=== PATIENT | male | born 1965 | race African-American/Black ===

== ENCOUNTER 2018-10-26 14:41 | Inpatient (IN) | payer SELFPAY ==
[~2018-10-26] VITALS: Ht 167.6 cm; Wt 46.7 kg
[2018-10-26] MEDS ORDERED: SODIUM CHLORIDE 0.9% 1,000 ML IV ONE (15:48)
[2018-10-26] MEDS ORDERED: IPRATROPIUM BROM 0.5 MG/2.5ML INH SOL NEB ONE (16:00)
[2018-10-26] MEDS ORDERED: methylPREDNISolone SOD SUCC 125 MG/2 ML VL IV ONE (16:00)
[2018-10-26] MEDS ORDERED: ALBUTEROL SULF 2.5 MG/0.5ML(0.5%) NEB SOLN NEB ONE (16:00)
[2018-10-26 16:10] VITALS: BP 144/82
[2018-10-26] MEDS ORDERED: cefTRIAXone 1GM/50ML D5W 50 ML IV ONE (16:30)
[2018-10-26 16:41] LABS: Basophils # (auto) 0 uL; Basophils % (auto) 0.2 % (0.0-2.0); Eosinophils # (auto) 0 uL; Hematocrit 40.4 % (41.0-53.0); Hemoglobin 13.3 g/dL (13.5-17.5); Lymphocytes # (auto) 0.4 uL; Lymphocytes % (auto) 6.3 % (10.0-50.0); Mean Corpuscular Hemoglobin 27.2 pg (28.0-32.0); Mean Corpuscular Volume 82.5 fL (80.0-100.0); Monocytes # (auto) 0.3 uL; Monocytes % (auto) 5.2 % (0.0-12.0); Neutrophils # (auto) 5.5 uL; Neutrophils % (auto) 88.3 % (37.0-80.0); Platelet Count (auto) 185 10^3/uL (140-450); Red Blood Cells 4.89 10^6/uL (4.5-5.90); Red Cell Distribution Width 14.8 % (11.8-14.3); White Blood Cell 6.2 10^3/uL (4.4-10.8)
[2018-10-26 16:55] LABS: Albumin 3.1 g/dL (3.4-5.0); Calcium 7.9 mg/dL (8.5-10.1); Potassium 3.7 mmol/L (3.5-5.1)
[2018-10-26 16:59] LABS: INR 1.09 (0.9-1.15); Partial Thromboplastin Time 33.1 sec (23.78-33.04); Prothrombin Time 11.6 sec (9.27-12.13)
[2018-10-26 17:00] LABS: Bilirubin, Total 0.3 mg/dL (0.2-1.0); Total Protein 7.8 g/dL (6.4-8.2)
[2018-10-26] MEDS: ALBUTEROL SULF 2.5 MG/0.5ML(0.5%) NEB SOLN NEB SCH ×2 (18:00→23:24)
[2018-10-26] MEDS: IPRATROPIUM BROM 0.5 MG/2.5ML INH SOL NEB SCH ×2 (18:00→23:24)
[2018-10-26] MEDS ORDERED: ACETAMINOPHEN 500 MG TAB PO PRN (18:45)
[2018-10-26] MEDS ORDERED: MORPHINE SULFATE 4 MG/ML SYR/VIAL IV PRN (18:45)
[2018-10-26] MEDS ORDERED: HYDROcodone-ACET 5/325MG TAB PO PRN (18:45)
[2018-10-26] MEDS ORDERED: ONDANSETRON HCL 4 MG/2 ML VIAL IV PRN (18:45)
[2018-10-26] MEDS ORDERED: NITROGLYCERIN 0.4 MG SL TAB SL PRN (18:45)
[2018-10-26] MEDS ORDERED: MORPHINE SULF INJ 2 MG/ML SYRINGE 1ML IV PRN (18:45)
[2018-10-26] MEDS: methylPREDNISolone SOD SUCC 125 MG/2 ML VL IV SCH ×2 (21:25→22:00)
[2018-10-27] MEDS: IPRATROPIUM BROM 0.5 MG/2.5ML INH SOL NEB SCH ×4 (06:30→22:23)
[2018-10-27] MEDS: ALBUTEROL SULF 2.5 MG/0.5ML(0.5%) NEB SOLN NEB SCH ×4 (06:30→22:23)
[2018-10-27 07:36] LABS: Potassium 4.6 mmol/L (3.5-5.1)
[2018-10-27 07:38] LABS: Basophils # (auto) 0 uL; Basophils % (auto) 0.2 % (0.0-2.0); Eosinophils # (auto) 0 uL; Hematocrit 39.5 % (41.0-53.0); Hemoglobin 13.1 g/dL (13.5-17.5); Lymphocytes # (auto) 0.5 uL; Lymphocytes % (auto) 10.3 % (10.0-50.0); Mean Corpuscular Hemoglobin 27.2 pg (28.0-32.0); Mean Corpuscular Hgb Conc. 33.1 g/dL (32.0-36.0); Mean Corpuscular Volume 82.3 fL (80.0-100.0); Monocytes # (auto) 0.1 uL; Monocytes % (auto) 2.4 % (0.0-12.0); Neutrophils % (auto) 87.1 % (37.0-80.0); Nucleated Red Blood Cells % 0.1 %; Platelet Count (auto) 163 10^3/uL (140-450); Red Blood Cells 4.81 10^6/uL (4.5-5.90); Red Cell Distribution Width 14.9 % (11.8-14.3); White Blood Cell 4.6 10^3/uL (4.4-10.8)
[2018-10-27 07:54] LABS: BUN/Creatinine Ratio 19.7; Calcium 8.2 mg/dL (8.5-10.1)
[2018-10-27] MEDS ORDERED: methylPREDNISolone SOD SUCC 125 MG/2 ML VL IV ONE (08:30)
[2018-10-27] MEDS: methylPREDNISolone SOD SUCC 125 MG/2 ML VL IV SCH ×2 (09:27→21:35)
[2018-10-27 09:30] VITALS: BP 150/72
[2018-10-27] MEDS ORDERED: PANTOPRAZOLE 40 MG/10 ML VIAL IV SCH (10:00)
[2018-10-27] MEDS ORDERED: AZITHROMYCIN 500MG/ 250ML 250 ML IV SCH (10:00)
[2018-10-27 13:00] VITALS: BP 151/96
[2018-10-27] MEDS ORDERED: hydrALAZINE HCL 20 MG/ML VL IV PRN (16:15)
[2018-10-27 17:00] VITALS: BP 140/82
[2018-10-27 22:00] VITALS: BP 155/89
[2018-10-28 05:00] VITALS: BP 150/73
[2018-10-28] MEDS: IPRATROPIUM BROM 0.5 MG/2.5ML INH SOL NEB SCH (07:21)
[2018-10-28] MEDS: ALBUTEROL SULF 2.5 MG/0.5ML(0.5%) NEB SOLN NEB SCH (07:21)
--- NOTE | 2018-10-28 08:11 | NUR ---
Closing note Patient resting in bed, no signs of distress noted. Care endorsed to day shift nurse.
[2018-10-28 09:00] VITALS: BP 169/97
[2018-10-28] MEDS: methylPREDNISolone SOD SUCC 125 MG/2 ML VL IV SCH (09:28)
[2018-10-28] MEDS ORDERED: PANTOPRAZOLE 40 MG TAB PO SCH (10:00)
--- NOTE | 2018-10-28 11:08 | NUR ---
PT RETURNED TO ROOM ESCORTED BY SECURITY. PT ADVISED TO STAY IN ROOM DR. CHACON WAS LOOKING FOR HIM. PT AGREED, WILL CONTINUE TO MONITOR.
[2018-10-28 13:00] VITALS: BP 144/95
[2018-10-28] MEDS ORDERED: amLODIPine BESYLATE 5 MG TAB PO ONE (13:00)
--- NOTE | 2018-10-28 13:19 | NUR ---
PT IS TO BE DISCHARGED PER DR. CHACON, INFLUENZA OR URINE CULTURE NO LONGER NEEDED PER MD.
--- NOTE | 2018-10-28 15:30 | NUR ---
Discharge instructions given as ordered. Encourage to follow up with PMD as instructed. All questions and concerns addressed. Patient verbalized understanding. Medication reconciliation form completed and copy given to patient. IV removed with catheter intact, pressure dressing applied. Patient requested to keep hospital bracelet and refused wheel chair. Pt requests to walk out of hospital on own with all personal belongings. No distress noted at time of departure.
== END 2018-10-28 16:00 | disposition home or self-care (01) | DRG 189 ==
LOC: ER 15:01 → OVERFLOW 18:43 → CENTRAL 10-27 08:21
PROVIDERS: ADMIT Nurse Practitioner Acute Care; ATTEND Internal Medicine
PROC: 5A09357 Assistance with Respiratory Ventilation, Less than 24 Consecutive Hours, Continuous Positive Airway Pressure (ICD-10-PCS; principal; 2018-10-26)
DX: J96.00 Acute respiratory failure, unspecified whether with hypoxia or hypercapnia (principal); E44.0 Moderate protein-calorie malnutrition; Z68.1 Body mass index [BMI] 19.9 or less, adult; J44.1 Chronic obstructive pulmonary disease with (acute) exacerbation; F17.210 Nicotine dependence, cigarettes, uncomplicated; E83.51 Hypocalcemia; I10 Essential (primary) hypertension; J10.1 Influenza due to other identified influenza virus with other respiratory manifestations
CPT/HCPCS: 36415; 36600; 71045; 80048; 80053; 80061; 82805; 83880; 84443; 84484; 85025; 85610; 85730; 87040; 93306; 94640; 94660; 96361; 96365; 96375; C9113; G0378; J0696

== ENCOUNTER 2020-09-01 02:55 | Emergency (ER) | payer SELFPAY | END 2020-09-01 03:39 | disposition left against medical advice (07) | LOC: ER 02:59 | DX: F10.10 Alcohol abuse, uncomplicated ==